=== PATIENT | female | born 1960 | race Asian ===

== ENCOUNTER → 2024-01-19 07:29 | Outpatient (REF) | payer OTHER, SELFPAY | LOC: EMG 07:29 | PROVIDERS: ATTENDING PHYSICIAN Podiatrist; FAMILY PHYSICIAN Family Medicine | DX: G57.80 Other specified mononeuropathies of unspecified lower limb (principal) | CPT/HCPCS: 95886; 95910 ==

== ENCOUNTER → 2024-08-27 16:41 | Outpatient (REF) | payer OTHER, SELFPAY | LOC: WDC 16:41 | PROVIDERS: ATTENDING PHYSICIAN Family Medicine | DX: Z12.31 Encounter for screening mammogram for malignant neoplasm of breast (principal) | CPT/HCPCS: 77063; 77067 ==